=== PATIENT | female | born 1990 | race Caucasian/White ===

== ENCOUNTER → 2022-12-31 | Outpatient (CLI) | payer OTHER ==
[~2022-12-31] MED LIST: CRUTCH3 USE; HYDACE5 PO; IBUP800 PO; MULVITMINE PO
[2022-12-31 15:19] LABS: BASOPHILS ABSOLUTE AUTO 0.04 K/mm3 (0.00-0.23); BASOPHILS PERCENT AUTO 0 % (0-2); EOSINOPHILS ABSOLUTE AUTO 0.13 K/mm3 (0.00-0.68); EOSINOPHILS PERCENT AUTO 2 % (0-6); Hematocrit 43.5 % (33.0-51.0); Hemoglobin 14.3 g/dL (11.5-16.0); IMMATURE GRAN ABSOLUTE AUTO 0.02 K/mm3 (0.00-0.10); IMMATURE GRAN PERCENT AUTO 0 % (0-1); LYMPHOCYTES ABSOLUTE AUTO 1.92 K/mm3 (0.84-5.20); LYMPHOCYTES PERCENT AUTO 22 % (21-46); MONOCYTES ABSOLUTE AUTO 0.57 K/mm3 (0.16-1.47); MONOCYTES PERCENT AUTO 6 % (4-13); Mean Corpuscular HGB 27.8 pg (26.0-34.0); Mean Corpuscular HGB Conc 32.9 g/dL (31.5-36.5); Mean Corpuscular Volume 85 fL (80-100); Mean Platelet Volume 10.5 fL (9.1-12.4); NEUTROPHILS ABSOLUTE AUTO 6.26 K/mm3 (1.96-9.15); NEUTROPHILS PERCENT AUTO 70 % (41-73); Platelet Count 287 K/mm3 (150-400); RDW Coefficient Variation 13.2 % (11.7-14.2); RDW Standard Deviation 40.6 fL (35.1-46.3); Red Blood Cell Count 5.14 M/mm3 (3.80-5.20); White Blood Cell Count 8.94 K/mm3 (4.00-11.30)
[2022-12-31 15:32] LABS: Albumin, Blood 4.2 g/dL (3.4-5.0); Bilirubin, Total 0.3 mg/dL (0.1-1.0); Bun/Creatinine Ratio 13.7 (12.0-20.0); Calcium, Blood 9.7 mg/dL (8.5-10.1); Creatinine, Blood 0.95 mg/dL (0.40-1.00); Globulin, Blood 4.3 g/dL (2.2-4.0); Potassium, Blood 3.8 mmol/L (3.5-5.5); Total Protein, Blood 8.5 g/dL (6.4-8.2)
== END ==
LOC: LAB 15:14 → LAB SHORT 15:14
PROVIDERS: Chiropractor
DX: R10.11 Right upper quadrant pain (principal); R06.00 Dyspnea, unspecified; N39.0 Urinary tract infection, site not specified
CPT/HCPCS: 80053; 83690; 84484; 85025; 85379; 87077; 87086; 87186

== ENCOUNTER → 2023-03-30 | Outpatient (CLI) | payer OTHER ==
[2023-03-30 13:45] LABS: BASOPHILS ABSOLUTE AUTO 0.05 K/mm3 (0.00-0.23); BASOPHILS PERCENT AUTO 1 % (0-2); EOSINOPHILS ABSOLUTE AUTO 0.24 K/mm3 (0.00-0.68); EOSINOPHILS PERCENT AUTO 4 % (0-6); Hemoglobin 13.9 g/dL (11.5-16.0); IMMATURE GRAN ABSOLUTE AUTO 0.02 K/mm3 (0.00-0.10); IMMATURE GRAN PERCENT AUTO 0 % (0-1); LYMPHOCYTES ABSOLUTE AUTO 1.84 K/mm3 (0.84-5.20); LYMPHOCYTES PERCENT AUTO 31 % (21-46); MONOCYTES ABSOLUTE AUTO 0.46 K/mm3 (0.16-1.47); MONOCYTES PERCENT AUTO 8 % (4-13); Mean Corpuscular HGB 27.7 pg (26.0-34.0); Mean Corpuscular HGB Conc 32.3 g/dL (31.5-36.5); Mean Corpuscular Volume 86 fL (80-100); Mean Platelet Volume 10.7 fL (9.1-12.4); NEUTROPHILS ABSOLUTE AUTO 3.37 K/mm3 (1.96-9.15); NEUTROPHILS PERCENT AUTO 56 % (41-73); Platelet Count 277 K/mm3 (150-400); RDW Coefficient Variation 13.3 % (11.7-14.2); RDW Standard Deviation 41.4 fL (35.1-46.3); Red Blood Cell Count 5.01 M/mm3 (3.80-5.20); White Blood Cell Count 5.98 K/mm3 (4.00-11.30)
== END | disposition home or self-care (01) ==
LOC: LAB 13:41 → LAB SHORT 13:41
PROVIDERS: Family Medicine
DX: R42 Dizziness and giddiness (principal)
CPT/HCPCS: 85025

== ENCOUNTER 2024-04-19 22:08 | Observation (INO) | payer OTHER ==
[~2024-04-19] VITALS: Ht 160 cm; Wt 104.0 kg
[~2024-04-19 22:08] MED LIST changes: +ALMACONE SUSPE355 ML PO; +FAMO20 PO; +LETR2.5 PO; +Phentermine HCl15 MG PO; +Triamcinolone A15 G3 TOP
[2024-04-19 22:36] LABS: BASOPHILS ABSOLUTE AUTO 0.04 K/mm3 (0.00-0.23); BASOPHILS PERCENT AUTO 1 % (0-2); EOSINOPHILS ABSOLUTE AUTO 0.16 K/mm3 (0.00-0.68); EOSINOPHILS PERCENT AUTO 2 % (0-6); Hematocrit 35.5 % (33.0-51.0); IMMATURE GRAN ABSOLUTE AUTO 0.01 K/mm3 (0.00-0.10); IMMATURE GRAN PERCENT AUTO 0 % (0-1); LYMPHOCYTES ABSOLUTE AUTO 2.42 K/mm3 (0.84-5.20); LYMPHOCYTES PERCENT AUTO 29 % (21-46); MONOCYTES ABSOLUTE AUTO 0.73 K/mm3 (0.16-1.47); MONOCYTES PERCENT AUTO 9 % (4-13); Mean Corpuscular HGB 28.9 pg (26.0-34.0); Mean Corpuscular HGB Conc 33.8 g/dL (31.5-36.5); Mean Corpuscular Volume 86 fL (80-100); Mean Platelet Volume 10.4 fL (9.1-12.4); NEUTROPHILS ABSOLUTE AUTO 5.03 K/mm3 (1.96-9.15); NEUTROPHILS PERCENT AUTO 60 % (41-73); Platelet Count 238 K/mm3 (150-400); RDW Coefficient Variation 13.2 % (11.7-14.2); RDW Standard Deviation 40.9 fL (35.1-46.3); Red Blood Cell Count 4.15 M/mm3 (3.80-5.20); White Blood Cell Count 8.39 K/mm3 (4.00-11.30)
[2024-04-19] MEDS ORDERED: Ondansetron HCl 2 MG / ML 2ML Vial IV ONE (22:50)
[2024-04-19] MEDS ORDERED: Ketorolac Tromethamine 30mg Vial IV ONE (22:50)
[2024-04-19 22:52] LABS: Albumin, Blood 3.4 g/dL (3.4-5.0); Bilirubin, Total 0.3 mg/dL (0.1-1.0); Bun/Creatinine Ratio 18.6 (12.0-20.0); Calcium, Blood 8.5 mg/dL (8.5-10.1); Creatinine, Blood 0.7 mg/dL (0.40-1.00); Globulin, Blood 3.4 g/dL (2.2-4.0); Potassium, Blood 3.8 mmol/L (3.5-5.5); Total Protein, Blood 6.8 g/dL (6.4-8.2)
[2024-04-19] MEDS ORDERED: Morphine Sulfate 4 MG/1 ML Injection IV ONE (23:10)
[2024-04-20] VITALS (18 sets, daily range): BP systolic 112–141; BP diastolic 67–99
[2024-04-20 00:17] LABS: Source, Urine Clean Catch
[2024-04-20 00:20] LABS: Bilirubin, Urine Neg (Neg); Blood, Urine 1+ (Neg); Glucose Qualitative, Urine Neg (Neg); Ketones, Urine Neg (Neg); Leukocyte Esterase, Urine Neg (Neg); Nitrite, Urine Neg (Neg); Protein, Urine Neg (Neg); Urobilinogen, Urine NORM (Normal)
[2024-04-20 00:34] LABS: Appearance, Urine Hazy (Clear); Color, Urine Pale Yellow (P-Yellow)
[2024-04-20 00:35] LABS: Bacteria Mod /hpf; Red Blood Cells, Urine 0-2 /hpf (0-2); Squamous Epithelial Cells Many /hpf (Few); White Blood Cells, Urine 0-2 /hpf (0-5)
[2024-04-20] MEDS ORDERED: Ondansetron HCl 2 MG / ML 2ML Vial IV PRN ×2 (01:05→15:30)
[2024-04-20] MEDS ORDERED: FLU VACC TS2024-25(6MOS UP)/PF 45 MCG/0.5 ML SYRINGE IM ONE (01:05)
[2024-04-20] MEDS ORDERED: Morphine Sulfate 4 MG/1 ML Injection IV PRN ×2 (01:10→03:20)
[2024-04-20] MEDS ORDERED: Lactated Ringer's 1,000 ML IV SCH ×2 (02:00→13:15)
[2024-04-20] MEDS ORDERED: Adipex-P37.5 M1 PO (03:10)
[2024-04-20 05:33] LABS: BASOPHILS ABSOLUTE AUTO 0.04 K/mm3 (0.00-0.23); BASOPHILS PERCENT AUTO 1 % (0-2); EOSINOPHILS ABSOLUTE AUTO 0.11 K/mm3 (0.00-0.68); EOSINOPHILS PERCENT AUTO 1 % (0-6); Hematocrit 35.3 % (33.0-51.0); Hemoglobin 11.9 g/dL (11.5-16.0); IMMATURE GRAN ABSOLUTE AUTO 0.01 K/mm3 (0.00-0.10); IMMATURE GRAN PERCENT AUTO 0 % (0-1); LYMPHOCYTES ABSOLUTE AUTO 2.19 K/mm3 (0.84-5.20); LYMPHOCYTES PERCENT AUTO 28 % (21-46); MONOCYTES ABSOLUTE AUTO 0.65 K/mm3 (0.16-1.47); MONOCYTES PERCENT AUTO 8 % (4-13); Mean Corpuscular HGB 28.9 pg (26.0-34.0); Mean Corpuscular HGB Conc 33.7 g/dL (31.5-36.5); Mean Corpuscular Volume 86 fL (80-100); Mean Platelet Volume 10.5 fL (9.1-12.4); NEUTROPHILS ABSOLUTE AUTO 4.96 K/mm3 (1.96-9.15); NEUTROPHILS PERCENT AUTO 62 % (41-73); Platelet Count 231 K/mm3 (150-400); RDW Coefficient Variation 13.3 % (11.7-14.2); RDW Standard Deviation 41.1 fL (35.1-46.3); Red Blood Cell Count 4.12 M/mm3 (3.80-5.20); White Blood Cell Count 7.96 K/mm3 (4.00-11.30)
--- NOTE | 2024-04-20 05:49 | NUR ---
SHIFT SUMMARY PT ARRIVED TO UNIT APPROX 0320 TODAY RELATED TO SYMPTOMATIC CHOLELITHIASIS. A/OX4 WITH VSS. ORIENTATION TO ROOM PROVIDED, PT VERBALIZED UNDERSTANDING. PAIN MANAGED PER EMAR. NPO SINCE MIDNIGHT. IVF INFUSING PER ORDERS AND IS VOIDING. SBA RELATED LINES AND MEDICATION, IND AT BASELINE. PLAN FOR SURGERY TODAY. WILL GIVE REPORT TO ONCOMING RN.
[2024-04-20 06:11] LABS: Albumin, Blood 3.4 g/dL (3.4-5.0); Bilirubin, Total 0.5 mg/dL (0.1-1.0); Bun/Creatinine Ratio 16.4 (12.0-20.0); Creatinine, Blood 0.67 mg/dL (0.40-1.00); Globulin, Blood 3.3 g/dL (2.2-4.0); Potassium, Blood 3.9 mmol/L (3.5-5.5); Total Protein, Blood 6.7 g/dL (6.4-8.2)
[2024-04-20] MEDS ORDERED: Docusate Sodium 100 MG Cap PO SCH (09:00)
[2024-04-20] MEDS ORDERED: Calcium Carbonate 500 MG Tab Chew PO PRN (09:20)
[2024-04-20] MEDS ORDERED: Indocyanine Green 25 MG Vial IV ONE (13:15)
--- NOTE | 2024-04-20 13:59 | NUR ---
PT TO OR AT APROX 1400 VIA WC.
[2024-04-20] MEDS ORDERED: Bupivacaine 0.5% HCl 5 MG/ML 30MLVIAL ONE (14:08)
[2024-04-20] MEDS ORDERED: CeFAZolin Sodium 2,000 MG in NS 100 ML IV SCH (14:10)
[2024-04-20] MEDS ORDERED: CeFAZolin Sodium 2,000 MG VIAL ONE (14:19)
[2024-04-20] MEDS ORDERED: propofoL 20 ML IV ONE (14:35)
[2024-04-20] MEDS ORDERED: FentaNYL Citrate 50 MCG/ML 2 ML Injection ONE ×2 (14:35→16:12)
[2024-04-20] MEDS ORDERED: Dexamethasone Sod Phos 10 MG/ML 1ML VIAL ONE (14:36)
[2024-04-20] MEDS ORDERED: Ondansetron HCl 2 MG / ML 2ML Vial ONE (14:36)
[2024-04-20] MEDS ORDERED: Rocuronium Bromide 10 MG/ML 5ML Injection IV ONE ×2 (14:36→15:26)
[2024-04-20] MEDS ORDERED: Ketorolac Tromethamine 30mg Vial ONE (14:37)
[2024-04-20] MEDS ORDERED: FentaNYL Citrate 50 MCG/ML 2 ML Injection IV PRN (15:25)
[2024-04-20] MEDS ORDERED: HYDROmorphone HCl/Pf 1MG SYR IV PRN (15:30)
[2024-04-20] MEDS ORDERED: Haloperidol Lactate Inj. 5 MG/ML Injection IV PRN (15:30)
[2024-04-20] MEDS ORDERED: Albuterol 2.5 MG/3 ML VIAL INH PRN (15:30)
[2024-04-20] MEDS ORDERED: Sugammadex Sodium 200 MG/2ML SDV (100 MG/ML) ONE (15:37)
[2024-04-20] MEDS ORDERED: Acetaminophen 500 MG Tab PO PRN (17:15)
[2024-04-20] MEDS ORDERED: OxyCODONE HCL 5 MG TAB PO PRN (17:15)
--- NOTE | 2024-04-20 17:47 | NUR ---
SHIFT SUMMARY POD0 LAP UBALDO, Dayne/OX4, VSS, TOLERATING PO, SHE WAS REPORTING PAIN WHEN SHE CAME BACK FROM PACU BUT SHE WAS ALSO FALLING ASLEEP/VERY SOMNOLENT AT THE TIME, ONCE FAMILY LEFT SHE WAS ABLE TO FALL ASLEEP AND APPEARED COMFROTABLE AT REST, PO PAIN MEDICATION ORDERS OBTAINED, ORIGINAL PLAN WAS TO GO HOME BUT WITH PAIN SHE WILL STAY THE NIGHT AND DC IN THE AM. NO ACUTE EVENTS THIS SHIFT, CALL LIGHT IN REACH.
[2024-04-21 03:35] VITALS: BP 109/88
[2024-04-21 03:36] VITALS: BP 109/88
--- NOTE | 2024-04-21 04:42 | NUR ---
SHIFT SUMMARY POST OP DAY 1 LAP APPY. INCISIONS CDI WITH EXOFIN IN PLACE AND OPEN TO AIR, NO DRAINAGE NOTED. PT A/OX4 WITH VSS. PAIN MANAGED WITH PO MEDICATION. IS VOIDING. TOR PO INTAKE. AMBULATING IN HALLWAYS WITH SBA. IV REMOVED RELATED TO PAIN AND PT PREFERENCE. PLAN FOR POTENTIAL DC HOME TODAY. WILL GIVE REPORT TO ONCOMING YOLANDA
[2024-04-21 07:05] VITALS: BP 110/73
[2024-04-21] MEDS ORDERED: Ketorolac Tromethamine 15mg Vial IV PRN (11:40)
[2024-04-21] MEDS ORDERED: OXAYDO5 M2 PO (13:42)
--- NOTE | 2024-04-21 14:59 | NUR ---
DISCHARGE: PT IS WALKING,VOIDING, CONTINUES COMPLAIN OF PAIN. PT GIVEN MEDICATIONS PER EMAR AND ABD BINDER, ALSO A HEATING PAD. MOBILITY ENCOURAGED. DR. CHOWDHURY ROUNDED AND IS OK FOR DC. DC PACKET PRINTED AND PT EDUCATED. PT LEFT UNIT VIA WHEELCHAIR WITH KARSTEN MARIEE RN AT ABOUT 1430
== END 2024-04-21 14:44 | disposition home or self-care (01) ==
LOC: ER 22:08 → SURS 22:09
PROVIDERS: Emergency Medicine; Surgery; ADMIT Student in an Organized Health Care Education/Training Program
PROC: 0FT44ZZ Resection of Gallbladder, Percutaneous Endoscopic Approach (ICD-10-PCS; principal; 2024-04-20 14:00)
PROC: 8E0W4CZ Robotic Assisted Procedure of Trunk Region, Percutaneous Endoscopic Approach (ICD-10-PCS; principal; 2024-04-20 14:00)
DX: K80.12 Calculus of gallbladder with acute and chronic cholecystitis without obstruction (principal); F32.A Depression, unspecified; Z88.2 Allergy status to sulfonamides
CPT/HCPCS: 36415; 76705; 80053; 81001; 81025; 83690; 83735; 85025; 88304; 96374; 96375; 96376; 99285-25; A9270; G0378; J0690; J1100; J1885; J2270; J2405; J2704; J3010; J7120

== ENCOUNTER → 2024-07-07 | Outpatient (CLI) | payer OTHER ==
[~2024-07-07] MED LIST changes: +Adipex-P37.5 M1 PO; +OXAYDO5 M2 PO
[2024-07-07 15:46] LABS: Bacterial Vaginosis PCR Negative (NEGATIVE); Candida glabrata-krusei, PCR NOT DETECTED (NOT DETECT)
[2024-07-07 15:47] LABS: Candida Group, PCR DETECTED (NOT DETECT)
== END ==
LOC: LAB 11:08 → LAB SHORT 11:08
PROVIDERS: Registered Nurse Community Health
DX: N89.8 Other specified noninflammatory disorders of vagina (principal)
CPT/HCPCS: 81515